=== PATIENT | female | born 1975 | race Caucasian/White ===

== ENCOUNTER 2018-01-08 08:44 | Outpatient (CLI) | payer BC ==
--- NOTE | 2018-01-08 11:20 | MMO ---
BILATERAL DIGITAL SCREENING MAMMOGRAMS: HISTORY: This 42-year-old female presents for baseline digital screening mammograms. FINDINGS: There are typically benign calcifications noted bilaterally. There are some bilateral multiple focal asymmetries which appear benign. IMPRESSION: BI-RADS category 2, benign findings. Continued annual followup screening mammograms. BIRADS 2: Benign Finding(s) Routine annual screening mammography (for women over age 40) POS: JLUIS
== END 2018-01-08 08:45 | disposition home or self-care (01) ==
LOC: SCSMAMMO 08:44
PROVIDERS: ATTEND Family Medicine
DX: Z12.31 Encounter for screening mammogram for malignant neoplasm of breast (principal)
CPT/HCPCS: 77067